=== PATIENT | female | born 1990 | race Caucasian/White ===

== ENCOUNTER → 2023-02-17 | Outpatient (CLI) | payer BC, SELFPAY ==
[2023-02-17 09:57] LABS: Internal QC Validated? YES +Cl - CLEAR BKGD; Pregnancy, Serum, hCG Quali. NEGATIVE Negative
[2023-02-17 10:07] LABS: Vitamin D,25 Hydroxy 35.4 ng/mL
[2023-02-17 10:16] LABS: Cholesterol 278 mg/dL (200); Glucose 101 mg/dL (74-106); High Density Lipoprotein 43 mg/dL; Thyroid Stim Hormone (TSH) 2.97 uIU/mL (0.358-3.74); Triglycerides 154 mg/dL; Very Low Density Lipoprotein 31 mg/dL (5-40)
== END | disposition home or self-care (01) ==
LOC: PAVLAB 09:11
PROVIDERS: Referring Provider Obstetrics & Gynecology; Visit Provider Obstetrics & Gynecology
DX: Z13.29 Encounter for screening for other suspected endocrine disorder (principal); N91.2 Amenorrhea, unspecified; Z13.220 Encounter for screening for lipoid disorders; Z13.1 Encounter for screening for diabetes mellitus; Z13.21 Encounter for screening for nutritional disorder
CPT/HCPCS: 36415; 80061; 82306; 82947; 84443; 84703

== ENCOUNTER 2023-10-10 22:18 | Emergency (ER) | payer OTHER, SELFPAY ==
[2023-10-10 22:18] VITALS: BP 127/79; PULSE 64; RESP 14; TEMP 36.2; O2SAT 98; BMI 33.2
[2023-10-10] MEDS: Acetaminophen 500 MG Tablet 1000 MG PO (23:02)
[2023-10-10 23:39] LABS: Internal QC Validated? YES +Cl - CLEAR BKGD; Pregnancy, Urine Negative Negative
--- NOTE | 2023-10-10 23:55 | RAD_ITS ---
INDICATION: pain EXAMINATION/TECHNIQUE: X-RAY - XR Spine Lumbar Min 4 Views COMPARISON: None. FINDINGS: VERTEBRAE: Preserved vertebral body height. No fracture. No spondylolisthesis. Preservation of the normal lumbar lordosis. No significant facet arthropathy. DISCS: Disc spaces are maintained. INCLUDED ABDOMEN: Included bowel gas pattern is non-obstructive. RAD/L/S Spine Min 4 Views IMPRESSION: Unremarkable study. Electronically Signed: Osito Zaragoza MD at 0:22 EDT ,
[2023-10-11] MEDS: Orphenadrine 100 MG Tablet PO (00:04)
[2023-10-11 00:11] VITALS: BP 118/76; PULSE 69; RESP 18; TEMP 36.2; O2SAT 98
--- NOTE | 2023-10-11 00:26 | EX.ED.DYSGE1 ---
HPI History of Present Illness Chief Complaint: Back Informant: patient Narrative Narrative: Patient is a 33-year-old female with past medical history of iron deficiency anemia. She states she was at work roughly 2 hours ago when she injured her back. 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 She states it hurts to stand or sit or turn. She reports the pain localizes in her low back and does not radiate into the legs. She denies any loss of bowel or bladder control or history of IV drug use. However because it has been difficult to do her job secondary to the pain and injury she presents for evaluation PFSH [facility] Home Medications ?Medication ?Instructions ?Recorded ?Last Taken ?Type ferrous sulfate 325 mg (65 mg 325 mg PO DAILY 02/12/22 Unknown History iron) tablet multivitamin 1 tab PO DAILY 02/12/22 Unknown History methocarbamol 500 mg tablet 1,000 mg (2 x 500 mg) PO 4X/DAY 10/11/23 Unknown Rx PRN Muscle pain/spasm #56 tabs Allergy/AdvReac Type Severity Reaction Status Date / Time azithromycin (From Zithromax) Allergy Mild Hives Verified 10/10/23 22:24 Social History (Updated 02/17/23 @ 08:38 by Dennise Gunderson) Smoking Status: Never smoker alcohol intake: current alcohol intake frequency: holidays/special occasions only substance use type: does not use caffeine: Yes what type of physical activity do you participate in: other details: elliptical frequency: 1-2 times per week ROS ROS ED Constitutional Constitutional ED: Denies chills or fever(s) Eyes Eyes: Denies change in vision ENT ENT ED: Denies sore throat Cardiovascular Cardiovascular: Denies chest pain Respiratory/Chest Respiratory/Chest: Denies cough or dyspnea Gastrointestinal Gastrointestinal: Denies abdominal pain, diarrhea, nausea or vomiting Genitourinary Genitourinary ED: Denies dysuria, hematuria or urinary frequency Musculoskeletal Musculoskeletal: Reports back pain Integumentary Denies rash Neurologic Neurologic: Denies headache(s), paresthesias or weakness Hematologic/Lymphatic Hematologic/Lymphatic: Denies easy bleeding or easy bruising EXAM Physical Exam Const Vital Signs: 10/10/23 22:18 10/11/23 00:11 10/11/23 00:38 Temperature 97.1 F L 97.1 F L 97.4 F L Temperature Source Temporal Temporal Pulse Rate 64 69 70 Respiratory Rate 14 18 16 Blood Pressure 127/79 H 118/76 116/87 H Blood Pressure Mean 95 90 96 Pulse Ox 98 98 98 Oxygen Delivery Method Room Air Room Air Positive well nourished and well developed General Appearance ED: well developed; Negative for pallor HEENT HEENT Narrative: Normocephalic atraumatic Eyes PERRL and EOMs intact bilaterally General Eye ED: Negative for scleral icterus Neck supple Resp normal respiratory effort and clear to auscultation bilaterally Cardio regular rate and regular rhythm Rate: other Other Details: Heart is regular rate and rhythm without murmurs rubs or gallop Radial and carotid pulses are equal and symmetric Back/Spine Back/Spine Narrative: No bony deformity or step-off of the thoracic or lumbar spine. There is mild midline lumbar tenderness to palpation. There is also bilateral paralumbar tension and spasm noted that worsens with extension and rotation Negative straight leg raise. No clonus or Babinski. No saddle anesthesia. Patellar reflexes are plus 1 out of 4 bilaterally Extremity normal to inspection Neuro oriented x3, CN's II-XII intact bilaterally and no sensory deficits noted Sensorium / Orientation: alert Psych mental status grossly normal Skin no rashes or lesions noted and no wounds Skin Narrative: No abrasions or ecchymosis to suggest trauma No erythema warmth or rashes to suggest infection General Skin Exam: Negative for jaundice or pallor MDM MDM MDM Narrative Medical decision making narrative: Patient arrived to the ER with stable vitals and reported low back pain after a standing up maneuver/motion. She denied loss of bowel or bladder control or IV drug use going against cauda equina or epidural abscess. She denies any radiation of pain from the back into the legs going against sciatica or herniated disc. She did have concern for potential so a test was obtained which was negative going against a potential complication. As her could also be compression fracture or spinal thesis and x-ray was ordered which revealed no acute finding. After receiving Tylenol and Norflex she did have improvement of her pain. Therefore at this time as patient does not have findings of acute bony injury or neurovascular compromise there is no need for further workup and she can be discharged home and follow-up on an outpatient basis Lab Data Labs: Laboratory Results - last 24 hr 10/10/23 23:31 Urine Test Negative Radiography Diagnostic Testing: Clinical Impression(s) from Imaging Studies Lumbar Spine X-Ray 10/10/23 23:55 IMPRESSION: Unremarkable study. Electronically Signed: Osito Zaragoza MD at 0:22 EDT Reading Location ID and State: [facility] / [place] Tel , Service support , X-ray of the lumbar spine as interpreted by the emergency medicine physician reveals no acute compression fracture or spondylolisthesis Discharge Plan Triage Chief Complaint: Back ED Provider: Jamel Burleson Dx/Rx/DC Orders Clinical Impression: Acute lumbosacral myofascial strain, Iron deficiency anemia Instructions: Back Safety: Lifting, ED Back Sprain/Strain Prescriptions: New methocarbamol 500 mg tablet 1,000 mg PO 4X/DAY PRN (Reason: Muscle pain/spasm) Qty: 56 0RF No Action ferrous sulfate 325 mg (65 mg iron) tablet 325 mg PO DAILY multivitamin Tablet 1 tab PO DAILY Primary Care Provider: Care Physician,No Primary Referrals: Corporate,Care [Group of Physicians] - Care Physician,No Primary [Primary Care Provider] - Activity Restrictions/Additional Instructions: Please continue to stretch and heat your back to reduce pain and speed healing and return to the ER should you have any further concerns Print Language: Mohawk Disposition Disposition: Home, Self Care Discharge Date/Time: 10/11/23 00:38
[2023-10-11 00:38] VITALS: BP 116/87; PULSE 70; RESP 16; TEMP 36.3; O2SAT 98
== END 2023-10-11 00:38 | disposition home or self-care (01) ==
PROVIDERS: Emergency Provider Emergency Medicine; Visit Provider Emergency Medicine
DX: S39.012A Strain of muscle, fascia and tendon of lower back, initial encounter (principal); D50.9 Iron deficiency anemia, unspecified; X50.1XXA Overexertion from prolonged static or awkward postures, initial encounter; Y93.89 Activity, other specified; Y99.0 Civilian activity done for income or pay; Y92.89 Other specified places as the place of occurrence of the external cause
CPT/HCPCS: 72110; 81025; 99283

== ENCOUNTER → 2024-02-20 | Outpatient (CLI) | payer BC, SELFPAY ==
[2024-02-26 15:09] LABS: HPV APTIMA, High Risk Negative (Negative)
== END | disposition home or self-care (01) ==
PROVIDERS: Referring Provider Obstetrics & Gynecology; Visit Provider Obstetrics & Gynecology
DX: N89.8 Other specified noninflammatory disorders of vagina (principal); Z12.4 Encounter for screening for malignant neoplasm of cervix
CPT/HCPCS: 87070; 87205; 87624; 88175; G0145